=== PATIENT | male | born 1960 | race Caucasian/White ===

== ENCOUNTER 2016-02-29 09:35 | Day surgery (SDC) | payer OTHER ==
[~2016-02-29 09:35] MED LIST: LACTATED RINGERS 1,000 ML IV SCH
[2016-02-29] MEDS ORDERED: LACTATED RINGERS 1,000 ML ONE (09:42)
[2016-02-29] MEDS ORDERED: IV START KIT ONE (09:43)
[2016-02-29] MEDS ORDERED: PROPOFOL 40 ML IV ONE (10:09)
--- NOTE | 2016-03-02 15:08 | SURGPATH ---
[facility] [address] [place] [id number] Patient Name: KEVIN SAGASTUME MR#: [id number] : 1960 Gender: M Specimen #: [id number] Collected: 02/29/2016 Received: 03/01/2016 Reported: 03/02/2016 Submitting Phys: DEMETRIA DOCKERY Copy To Phys: [facility] JOSÉ WEI Clinical History / Pre-Operative Diagnosis: PERSONAL AND FAMILY HISTORY OF COLON POLYPS Specimen Source / Surgical Procedure Performed: MID TRANSVERSE COLON POLYP Interpretation: MID TRANSVERSE COLON, POLYP, BIOPSY: - TUBULAR ADENOMA Electronically Signed Out Stephany Rodgers M.D. Gross Description: The specimen is received in a formalin filled container labeled with the patient's name and "mid transverse colon polyp". Two tompkins biopsies are 0.3 and 0.6 cm. Totally embedded in one cassette. Mesfin Broderick PJhonatan Microscopic Description: Sections show fragments of adenomatous colonic mucosa without high grade dysplasia. 1: 67194 D12.3
== END 2016-02-29 11:40 | disposition home or self-care (01) ==
LOC: SDC 09:35
PROVIDERS: ATTEND Internal Medicine Gastroenterology
PROC: 0DBL8ZX Excision of Transverse Colon, Via Natural or Artificial Opening Endoscopic, Diagnostic (ICD-10-PCS; principal; 2016-02-29)
DX: Z12.11 Encounter for screening for malignant neoplasm of colon (principal); D12.3 Benign neoplasm of transverse colon; K57.30 Diverticulosis of large intestine without perforation or abscess without bleeding; Z86.010 Personal history of colon polyps; Z83.71 Family history of colonic polyps; E11.9 Type 2 diabetes mellitus without complications; F41.9 Anxiety disorder, unspecified; Z79.4 Long term (current) use of insulin
CPT/HCPCS: 45385; J7120